=== PATIENT | female | born 1950 | race Hispanic/Latino ===

== ENCOUNTER 2016-10-28 06:47 | Day surgery (SDC) | payer MEDICARE, BC ==
[2016-10-22 12:00] VITALS: BMI 25.1
[2016-10-28] MEDS ORDERED: Propofol 10 mg/ml Inj (20 ML) ONE (07:56)
[2016-10-28] MEDS ORDERED: Sodium Chloride 0.9% 1,000 ML IV SCH (09:00)
[2016-10-28 09:17] VITALS: BP 143/74; PULSE 55; RESP 17; TEMP 97.5; O2SAT 97
== END 2016-10-28 09:50 | disposition home or self-care (01) ==
LOC: ENDO 06:47
PROVIDERS: ATTEND Specialist
DX: D12.5 Benign neoplasm of sigmoid colon (principal); K63.5 Polyp of colon; K57.30 Diverticulosis of large intestine without perforation or abscess without bleeding; K64.8 Other hemorrhoids; E03.9 Hypothyroidism, unspecified; J44.9 Chronic obstructive pulmonary disease, unspecified; Z98.84 Bariatric surgery status
CPT/HCPCS: 45385; 88305; J2704; J7040